=== PATIENT | male | born 1960 | race African-American/Black ===

== ENCOUNTER 2017-10-28 10:55 | Emergency (ER) | payer OTHER ==
[~2017-10-28] VITALS: Ht 165.1 cm; Wt 95.3 kg
[~2017-10-28 10:55] MED LIST: CARISOPRODOL 3350 MG PO; COUMADIN 5 MG TA5 M1; FLEXERIL PO; HYDROCODON-ACE1 EAC7 PO; HYDROCODON-ACE1 EACH PO; JANTOVEN10 MG PO; KEFLEX500 MG PO; LIORESAL 10 MG10 MG PO; NORCO 5-325 TA1 EACH PO; NORFLEX100 MG PO; ULTRACET TABLE1 EACH PO; ULTRAM 50MG TAB50 MG PO; VICODIN 5-5001 EACH PO; XARELTO10 MG PO
[2017-10-28] MEDS ORDERED: ULTRAM 50MG TAB50 MG PO (12:20)
[2017-10-28 12:25] VITALS: BP 155/83
== END 2017-10-28 12:25 | disposition home or self-care (01) ==
LOC: M.ERS 10:55
DX: M77.9 Enthesopathy, unspecified (principal)

== ENCOUNTER 2018-06-27 18:54 | Emergency (ER) | payer OTHER ==
[~2018-06-27] VITALS: Ht 167.6 cm; Wt 95.3 kg
[2018-06-27 19:27] LABS: URINE BILIRUBIN NEGATIVE (Negative); URINE BLOOD 1+ (Negative); URINE CLARITY CLEAR; URINE COLOR YELLOW; URINE GLUCOSE-RANDOM NEGATIVE (Negative); URINE LEUKOCYTES-REFLEX NEGATIVE (Negative); URINE NITRITE-REFLEX NEGATIVE (Negative); URINE PROTEIN NEGATIVE (Negative); URINE SPECIFIC GRAVITY 1.025 (1.005-1.030); URINE UROBILINOGEN 0.2 E.U./dl (0.2-1.0)
[2018-06-27 19:32] LABS: ANION GAP 8 mmol/L (7-16); BUN 8 mg/dL (7-18); CALCIUM 9.1 mg/dL (8.5-10.1); CHLORIDE 102 mmol/L (98-107); CO2 29 mmol/L (21-32); CREATININE 0.9 mg/dL (0.6-1.3); GLUCOSE 106 mg/dL (70-99); POTASSIUM 3.1 mmol/L (3.5-5.1); SODIUM 139 mmol/L (136-145)
[2018-06-27 19:33] LABS: ABSOLUTE LYMPHOCYTES 0.8 thou/uL (0.8-5.3); ABSOLUTE MONOCYTES 0.4 thou/uL (0.0-1.2); ABSOLUTE NEUTROPHILS 3.2 thou/uL (1.6-8.1); BASOPHILS 0.3 %; EOSINOPHILS 1.1 %; LYMPHOCYTES 18.2 %; MCH 29.8 pg (26.0-34.0); MCHC 32.6 g/dL (28.0-37.0); MCV 91.5 fL (80.0-100.0); MONOCYTES 8.1 %; MPV 8.4 fl. (7.2-11.1); NUCLEATED RBCS 0 /100WBC; PLATELET COUNT* 148 thou/uL (150-400); POLYS 72.3 %; RBC 4.37 mil/uL (4.50-6.00); RDW-CV 13.5 % (10.5-14.5); WBC 4.4 thou/uL (4.0-11.0)
[2018-06-27 19:36] LABS: URINE KETONES 3+ (Negative)
[2018-06-27 19:38] LABS: ACETEST (KETONE CONFIRMATORY) Moderate (Negative)
[2018-06-27 19:40] LABS: BACTERIA-REFLEX None Seen /HPF (None Seen); CRYSTALS None Seen /LPF (None Seen); SQUAMOUS 0-3 Few /LPF (0-3); URINE RBC 3-10 Few /HPF (0-2); URINE WBC-REFLEX 0-5 Rare /HPF (0-5)
[2018-06-27 19:43] LABS: ALBUMIN 3.7 g/dL (3.4-5.0); ALKALINE PHOSPHATASE 72 U/L (46-116); LIPASE 76 U/L (73-393); SGOT 34 U/L (15-37); SGPT 19 U/L (30-65); TOTAL BILIRUBIN 0.8 mg/dL (<0.1-1.0); TOTAL PROTEIN 7.6 g/dL (6.4-8.2); TROPONIN-I LEVEL <0.06 ng/mL (<0.06)
[2018-06-27] MEDS ORDERED: CARAFATE 1 GM TA1 G1 PO (20:25)
[2018-06-27] MEDS ORDERED: NORCO 5-325 TA1 EACH PO (20:25)
[2018-06-27 20:47] VITALS: BP 150/77
--- NOTE | 2018-06-28 17:03 | EKG ---
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 : 1960 Requested By: Zhou Camejo Order Number: [id number] MD: Dave Hodgson Measurements Intervals [place] Rate: 46 P: 63 MO: 147 QRS: -13 QRSD: 103 T: -35 QT: 468 QTc: 410 Interpretive Statements Sinus bradycardia Left ventricular hypertrophy, by voltage Borderline T abnormalities, inferior leads Compared to ECG 09/11/2014 14:11:06 T-wave abnormality now present Electronically Signed On 06-28-2018 17:03:45 CDT by Dave Hodgson [email or web address] <ELECTRONICALLY SIGNED> By: Dave Hodgson MD, [facility] 06/28/18 1703 16 16 Dave Hodgson MD, [facility] /EPI
== END 2018-06-27 20:48 | disposition home or self-care (01) ==
LOC: M.ERS 18:54
PROVIDERS: Emergency Medicine Emergency Medical Services
DX: R10.9 Unspecified abdominal pain (principal); Z86.718 Personal history of other venous thrombosis and embolism

== ENCOUNTER 2019-01-07 01:10 | Emergency (ER) | payer OTHER ==
[~2019-01-07] VITALS: Ht 167.6 cm; Wt 90.7 kg
[~2019-01-07 01:10] MED LIST changes: +CARAFATE 1 GM TA1 G1 PO
[2019-01-07] MEDS ORDERED: FLEXERIL PO (01:31)
[2019-01-07] MEDS ORDERED: HYDROCODONE-AP1 EAC6 PO (01:31)
[2019-01-07 02:01] VITALS: BP 128/78
--- NOTE | 2019-01-07 13:09 | EKG ---
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1960 Requested By: Zhou Camejo Order Number: [id number] MD: Stephen Covington Measurements Intervals [place] Rate: 57 P: 11 ND: 149 QRS: -20 QRSD: 101 T: -5 QT: 436 QTc: 425 Interpretive Statements Sinus rhythm Left ventricular hypertrophy Borderline T abnormalities, inferior leads Compared to ECG 06/27/2018 19:17:41 Sinus bradycardia no longer present T-wave abnormality still present Electronically Signed On 01-07-2019 13:09:18 CDT by Stephen Covington [email or web address] <ELECTRONICALLY SIGNED> By: Stephen Covington MD, [facility] 01/07/19 0937 0120 0120 Stephen Covington MD, [facility] /EPI
== END 2019-01-07 02:01 | disposition home or self-care (01) ==
LOC: M.ERS 01:10
DX: R07.81 Pleurodynia (principal); Z88.8 Allergy status to other drugs, medicaments and biological substances

== ENCOUNTER 2019-02-06 01:10 | Emergency (ER) | payer OTHER ==
[~2019-02-06] VITALS: Ht 167.6 cm; Wt 90.7 kg
[~2019-02-06 01:10] MED LIST changes: +HYDROCODONE-AP1 EAC6 PO
[2019-02-06 01:19] VITALS: BP 144/95
[2019-02-06] MEDS ORDERED: KEFLEX500 M1 PO (01:27)
[2019-02-06] MEDS ORDERED: VANOS60 GM TOP (01:27)
== END 2019-02-06 01:36 | disposition home or self-care (01) ==
LOC: M.ERS 01:10
DX: L30.4 Erythema intertrigo (principal); L03.113 Cellulitis of right upper limb; Z88.8 Allergy status to other drugs, medicaments and biological substances

== ENCOUNTER 2019-03-02 00:54 | Emergency (ER) | payer OTHER ==
[~2019-03-02] VITALS: Ht 167.6 cm; Wt 90.7 kg
[~2019-03-02 00:54] MED LIST changes: +KEFLEX500 M1 PO; +VANOS60 GM TOP
[2019-03-02] MEDS ORDERED: FLEXERIL PO (01:11)
[2019-03-02] MEDS ORDERED: NORCO 7.5-3251 EACH PO (01:11)
[2019-03-02 01:19] VITALS: BP 161/85
== END 2019-03-02 01:21 | disposition home or self-care (01) ==
LOC: M.ERS 00:54
DX: S29.012A Strain of muscle and tendon of back wall of thorax, initial encounter (principal); X58.XXXA Exposure to other specified factors, initial encounter; Y93.89 Activity, other specified; Y92.89 Other specified places as the place of occurrence of the external cause; Y99.8 Other external cause status; Z88.8 Allergy status to other drugs, medicaments and biological substances

== ENCOUNTER 2019-06-22 01:07 | Emergency (ER) | payer OTHER ==
[~2019-06-22] VITALS: Ht 165.1 cm; Wt 90.7 kg
[~2019-06-22 01:07] MED LIST changes: +NORCO 7.5-3251 EACH PO
[2019-06-22] MEDS ORDERED: PREDNISONE50 MG PO (01:54)
[2019-06-22] MEDS ORDERED: NORCO 7.5-3251 EACH PO (01:54)
[2019-06-22] MEDS ORDERED: MELOXICAM15 MG PO (01:54)
[2019-06-22 02:06] VITALS: BP 132/90
== END 2019-06-22 02:06 | disposition home or self-care (01) ==
LOC: M.ERS 01:07
DX: M17.12 Unilateral primary osteoarthritis, left knee (principal); Z88.6 Allergy status to analgesic agent; Z86.718 Personal history of other venous thrombosis and embolism

== ENCOUNTER 2019-08-20 02:05 | Emergency (ER) | payer OTHER ==
[~2019-08-20] VITALS: Ht 165.1 cm; Wt 90.7 kg
[~2019-08-20 02:05] MED LIST changes: +MELOXICAM15 MG PO; +PREDNISONE50 MG PO
[2019-08-20] MEDS ORDERED: HYDROCODON-ACE1 EAC7 PO (02:56)
[2019-08-20] MEDS ORDERED: MELOXICAM15 MG PO (02:56)
[2019-08-20 03:08] VITALS: BP 148/78
[2019-08-20] MEDS ORDERED: VANOS60 GM TOP (03:10)
== END 2019-08-20 03:10 | disposition home or self-care (01) ==
LOC: M.ERS 02:05
DX: M17.11 Unilateral primary osteoarthritis, right knee (principal); M25.462 Effusion, left knee; Z88.6 Allergy status to analgesic agent; Z86.718 Personal history of other venous thrombosis and embolism

== ENCOUNTER 2019-09-08 02:07 | Emergency (ER) | payer OTHER ==
[~2019-09-08] VITALS: Ht 165.1 cm; Wt 89.8 kg
[2019-09-08 02:12] VITALS: BP 156/75
== END 2019-09-08 02:59 | disposition home or self-care (01) ==
LOC: M.ERS 02:07
DX: S50.11XA Contusion of right forearm, initial encounter (principal); W22.8XXA Striking against or struck by other objects, initial encounter; Z86.718 Personal history of other venous thrombosis and embolism; Z88.6 Allergy status to analgesic agent; Y93.89 Activity, other specified; Y92.89 Other specified places as the place of occurrence of the external cause; Y99.8 Other external cause status

== ENCOUNTER 2021-03-10 10:07 | Emergency (ER) | payer OTHER ==
[~2021-03-10] VITALS: Ht 165.1 cm; Wt 97.5 kg
[2021-03-10 10:38] LABS: ABSOLUTE MONOCYTES 0.3 thou/uL (0.0-1.2); ABSOLUTE NEUTROPHILS 5.4 thou/uL (1.6-8.1); MCHC 33.1 g/dL (28.0-37.0); WBC 6.5 thou/uL (4.0-11.0)
[2021-03-10 10:40] LABS: ABSOLUTE LYMPHOCYTES 0.8 thou/uL (0.8-5.3); BASOPHILS 0.3 %; HEMATOCRIT 41.7 % (42.0-52.0); HEMOGLOBIN 13.8 gm/dL (14.0-18.0); LYMPHOCYTES 12.1 %; MCH 30.6 pg (26.0-34.0); MCV 92.5 fL (80.0-100.0); MONOCYTES 4.7 %; MPV 8.2 fl. (7.2-11.1); NUCLEATED RBCS 0 /100WBC; PLATELET COUNT* 130 thou/uL (150-400); POLYS 82.9 %; RDW-CV 13.4 % (10.5-14.5)
[2021-03-10 10:48] LABS: CALCIUM 8.7 mg/dL (8.5-10.1); POTASSIUM 3.8 mmol/L (3.5-5.1)
[2021-03-10 11:06] LABS: TOTAL BILIRUBIN 0.9 mg/dL (<0.1-1.0); TOTAL PROTEIN 8.5 g/dL (6.4-8.2)
[2021-03-10 11:09] LABS: URINE BLOOD 3+ (Negative); URINE CLARITY CLEAR; URINE COLOR YELLOW; URINE GLUCOSE-RANDOM NEGATIVE (Negative); URINE KETONES 1+ (Negative); URINE LEUKOCYTES-REFLEX NEGATIVE (Negative); URINE NITRITE-REFLEX NEGATIVE (Negative); URINE PROTEIN 2+ (Negative); URINE SPECIFIC GRAVITY 1.025 (1.005-1.030)
[2021-03-10 11:17] LABS: ICTOTEST (BILI CONFIRMATORY) Negative (Negative); SQUAMOUS 0-3 Few /LPF (0-3); URINE BILIRUBIN 2+ (Negative); URINE RBC 0-2 Rare /HPF (0-2); URINE WBC-REFLEX 0-5 Rare /HPF (0-5)
[2021-03-10 11:18] LABS: CRYSTALS None Seen /LPF (None Seen); FINE GRANULAR CASTS 0-3 Few /LPF (None Seen); HYALINE CASTS 0-3 Few /LPF (None Seen)
[2021-03-10] MEDS ORDERED: AUGMENTIN 875-1 EACH PO (12:39)
[2021-03-10] MEDS ORDERED: MECLIZINE HCL25 M1 PO (12:39)
[2021-03-10 12:47] VITALS: BP 112/66
--- NOTE | 2021-03-11 11:04 | EKG ---
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: : 1960 Requested By: Zhou Camejo Order Number: [id number] MD: Stephen Covington Measurements Intervals [place] Rate: 71 P: 29 [place]: 139 QRS: -15 QRSD: 97 T: 6 QT: 388 QTc: 422 Interpretive Statements Sinus rhythm Left ventricular hypertrophy Inferior infarct, old Compared to ECG 01/07/2019 01:20:27 no change Electronically Signed On 03-11-2021 11:04:25 CDT by Stephen Covington [email or web address] <ELECTRONICALLY SIGNED> By: Stephen Covington MD, [facility] 03/11/21 1104 1034 1034 Stephen Covington MD, [facility] /EPI
== END 2021-03-10 12:45 | disposition home or self-care (01) ==
LOC: M.ERS 10:07
PROVIDERS: Emergency Medicine Emergency Medical Services
DX: R42 Dizziness and giddiness (principal); R53.1 Weakness; Z88.6 Allergy status to analgesic agent

== ENCOUNTER 2021-03-27 19:03 | Emergency (ER) | payer OTHER ==
[~2021-03-27] VITALS: Ht 165.1 cm; Wt 103.9 kg
[~2021-03-27 19:03] MED LIST changes: +AUGMENTIN 875-1 EACH PO; +MECLIZINE HCL25 M1 PO
[2021-03-27 19:39] LABS: ABSOLUTE EOSINOPHILS 0.1 thou/uL (0.0-0.7); ABSOLUTE LYMPHOCYTES 0.8 thou/uL (0.8-5.3); ABSOLUTE MONOCYTES 0.5 thou/uL (0.0-1.2); ABSOLUTE NEUTROPHILS 3.3 thou/uL (1.6-8.1); BASOPHILS 0.8 %; EOSINOPHILS 2.1 %; HEMATOCRIT 33.3 % (42.0-52.0); HEMOGLOBIN 11.1 gm/dL (14.0-18.0); LYMPHOCYTES 17.6 %; MCH 31.1 pg (26.0-34.0); MCHC 33.2 g/dL (28.0-37.0); MCV 93.7 fL (80.0-100.0); MONOCYTES 10.5 %; MPV 7.4 fl. (7.2-11.1); NUCLEATED RBCS 0 /100WBC; PLATELET COUNT* 204 thou/uL (150-400); RBC 3.56 mil/uL (4.50-6.00); RDW-CV 13.5 % (10.5-14.5); WBC 4.7 thou/uL (4.0-11.0)
[2021-03-27 19:47] LABS: CALCIUM 9.2 mg/dL (8.5-10.1); CREATININE 0.8 mg/dL (0.6-1.3); POTASSIUM 4.2 mmol/L (3.5-5.1)
[2021-03-27 19:51] LABS: ALBUMIN 3.5 g/dL (3.4-5.0); TOTAL BILIRUBIN 0.5 mg/dL (<0.1-1.0); TOTAL PROTEIN 7.6 g/dL (6.4-8.2)
[2021-03-27 19:56] LABS: APTT 25.6 Seconds (25.0-31.3); PROTIME 10.6 Seconds (9.20-11.50)
[2021-03-27] MEDS ORDERED: ELIQUIS5 M1 PO (21:25)
[2021-03-27 21:38] VITALS: BP 184/85
== END 2021-03-27 21:38 | disposition home or self-care (01) ==
LOC: M.ERS 19:03
PROVIDERS: Personal Emergency Response Attendant
DX: I82.402 Acute embolism and thrombosis of unspecified deep veins of left lower extremity (principal); Z88.6 Allergy status to analgesic agent

== ENCOUNTER 2021-06-02 16:21 | Emergency (ER) | payer OTHER ==
[~2021-06-02] VITALS: Ht 165.1 cm; Wt 99.8 kg
[~2021-06-02 16:21] MED LIST changes: +ELIQUIS5 M1 PO
[2021-06-02 16:33] VITALS: BP 134/101
[2021-06-02] MEDS ORDERED: BACTRIM DS TAB1 EAC1 PO (17:07)
[2021-06-02] MEDS ORDERED: CENTANY30 GM TOP (17:07)
== END 2021-06-02 17:27 | disposition home or self-care (01) ==
LOC: M.ERS 16:21
DX: T81.89XD Other complications of procedures, not elsewhere classified, subsequent encounter (principal); Z88.1 Allergy status to other antibiotic agents; W19.XXXD Unspecified fall, subsequent encounter

== ENCOUNTER → 2021-09-17 | Outpatient (CLI) | payer OTHER ==
[~2021-09-17] MED LIST changes: +BACTRIM DS TAB1 EAC1 PO; +CENTANY30 GM TOP
== END ==
LOC: M.WC 08:00
PROVIDERS: ATTEND Surgery
DX: I87.312 Chronic venous hypertension (idiopathic) with ulcer of left lower extremity (principal); L97.822 Non-pressure chronic ulcer of other part of left lower leg with fat layer exposed; T79.8XXA Other early complications of trauma, initial encounter; I87.2 Venous insufficiency (chronic) (peripheral); Z96.651 Presence of right artificial knee joint; Z86.718 Personal history of other venous thrombosis and embolism; W22.8XXA Striking against or struck by other objects, initial encounter; Y93.89 Activity, other specified; Y92.89 Other specified places as the place of occurrence of the external cause; Y99.8 Other external cause status

== ENCOUNTER → 2021-09-20 | Outpatient (CLI) | payer OTHER | LOC: M.ULTRA 07:41 → M.WC 07:41 → M.ULTRA 08:00 | PROVIDERS: ATTEND Nurse Practitioner Family | DX: L97.822 Non-pressure chronic ulcer of other part of left lower leg with fat layer exposed (principal); I87.8 Other specified disorders of veins; Z86.718 Personal history of other venous thrombosis and embolism ==

== ENCOUNTER → 2021-09-24 | Outpatient (CLI) | payer OTHER | LOC: M.WC 08:16 | PROVIDERS: ATTEND Surgery | DX: I87.312 Chronic venous hypertension (idiopathic) with ulcer of left lower extremity (principal); L97.822 Non-pressure chronic ulcer of other part of left lower leg with fat layer exposed; T79.8XXD Other early complications of trauma, subsequent encounter; Z96.651 Presence of right artificial knee joint; Z86.718 Personal history of other venous thrombosis and embolism; W22.8XXD Striking against or struck by other objects, subsequent encounter ==

== ENCOUNTER → 2021-09-27 | Outpatient (CLI) | payer OTHER | LOC: M.WC 10:38 | PROVIDERS: ATTEND Surgery | DX: L97.822 Non-pressure chronic ulcer of other part of left lower leg with fat layer exposed (principal); S81.802D Unspecified open wound, left lower leg, subsequent encounter; I87.2 Venous insufficiency (chronic) (peripheral); Z86.718 Personal history of other venous thrombosis and embolism; Z96.651 Presence of right artificial knee joint; Z98.890 Other specified postprocedural states; W22.8XXD Striking against or struck by other objects, subsequent encounter ==

== ENCOUNTER → 2021-10-01 | Outpatient (CLI) | payer OTHER | LOC: M.WC 09-28 13:58 | PROVIDERS: ATTEND Surgery | DX: I87.312 Chronic venous hypertension (idiopathic) with ulcer of left lower extremity (principal); L97.822 Non-pressure chronic ulcer of other part of left lower leg with fat layer exposed; T79.8XXD Other early complications of trauma, subsequent encounter; Z86.718 Personal history of other venous thrombosis and embolism; Z79.01 Long term (current) use of anticoagulants; Z79.899 Other long term (current) drug therapy; X58.XXXD Exposure to other specified factors, subsequent encounter ==

== ENCOUNTER → 2021-10-04 | Outpatient (CLI) | payer OTHER | LOC: M.WC 10:20 | PROVIDERS: ATTEND Surgery | DX: I87.312 Chronic venous hypertension (idiopathic) with ulcer of left lower extremity (principal); L97.822 Non-pressure chronic ulcer of other part of left lower leg with fat layer exposed; T79.8XXD Other early complications of trauma, subsequent encounter; Z86.718 Personal history of other venous thrombosis and embolism; X58.XXXD Exposure to other specified factors, subsequent encounter ==

== ENCOUNTER → 2021-10-08 | Outpatient (CLI) | payer OTHER | LOC: M.WC 09:18 | PROVIDERS: ATTEND Surgery | DX: I87.312 Chronic venous hypertension (idiopathic) with ulcer of left lower extremity (principal); L97.822 Non-pressure chronic ulcer of other part of left lower leg with fat layer exposed; T79.8XXD Other early complications of trauma, subsequent encounter; Z86.718 Personal history of other venous thrombosis and embolism; Z79.01 Long term (current) use of anticoagulants; Z79.899 Other long term (current) drug therapy; Z96.651 Presence of right artificial knee joint; W22.8XXD Striking against or struck by other objects, subsequent encounter ==

== ENCOUNTER → 2021-10-11 | Outpatient (CLI) | payer OTHER | LOC: M.WC 09:04 | PROVIDERS: ATTEND Surgery | DX: I87.312 Chronic venous hypertension (idiopathic) with ulcer of left lower extremity (principal); L97.822 Non-pressure chronic ulcer of other part of left lower leg with fat layer exposed; T79.8XXD Other early complications of trauma, subsequent encounter; Z86.718 Personal history of other venous thrombosis and embolism; Z79.01 Long term (current) use of anticoagulants; Z79.899 Other long term (current) drug therapy; Z96.651 Presence of right artificial knee joint; W22.8XXD Striking against or struck by other objects, subsequent encounter ==

== ENCOUNTER → 2021-10-15 | Outpatient (CLI) | payer OTHER | LOC: M.WC 10:00 | PROVIDERS: ATTEND Surgery | DX: I87.312 Chronic venous hypertension (idiopathic) with ulcer of left lower extremity (principal); L97.822 Non-pressure chronic ulcer of other part of left lower leg with fat layer exposed; T79.8XXD Other early complications of trauma, subsequent encounter; Z86.718 Personal history of other venous thrombosis and embolism; Z79.01 Long term (current) use of anticoagulants; Z79.899 Other long term (current) drug therapy; Z96.651 Presence of right artificial knee joint; W22.8XXD Striking against or struck by other objects, subsequent encounter ==

== ENCOUNTER → 2021-10-18 | Outpatient (CLI) | payer OTHER | LOC: M.WC 09:51 | PROVIDERS: ATTEND Surgery | DX: I87.312 Chronic venous hypertension (idiopathic) with ulcer of left lower extremity (principal); L97.822 Non-pressure chronic ulcer of other part of left lower leg with fat layer exposed; T79.8XXD Other early complications of trauma, subsequent encounter; Z86.718 Personal history of other venous thrombosis and embolism; Z79.01 Long term (current) use of anticoagulants; Z96.651 Presence of right artificial knee joint; W22.8XXD Striking against or struck by other objects, subsequent encounter ==

== ENCOUNTER → 2021-10-22 | Outpatient (CLI) | payer OTHER | LOC: M.WC 09:56 | PROVIDERS: ATTEND Surgery | DX: I87.312 Chronic venous hypertension (idiopathic) with ulcer of left lower extremity (principal); L97.822 Non-pressure chronic ulcer of other part of left lower leg with fat layer exposed; T79.8XXD Other early complications of trauma, subsequent encounter; Z86.718 Personal history of other venous thrombosis and embolism; Z79.01 Long term (current) use of anticoagulants; Z79.899 Other long term (current) drug therapy; Y83.8 Other surgical procedures as the cause of abnormal reaction of the patient, or of later complication, without mention of misadventure at the time of the procedure ==

== ENCOUNTER → 2021-10-25 | Outpatient (CLI) | payer OTHER | LOC: M.WC 10:00 | PROVIDERS: ATTEND Surgery | DX: I87.312 Chronic venous hypertension (idiopathic) with ulcer of left lower extremity (principal); L97.822 Non-pressure chronic ulcer of other part of left lower leg with fat layer exposed; T79.8XXD Other early complications of trauma, subsequent encounter; Z86.718 Personal history of other venous thrombosis and embolism; Z79.01 Long term (current) use of anticoagulants; X58.XXXD Exposure to other specified factors, subsequent encounter; Y83.8 Other surgical procedures as the cause of abnormal reaction of the patient, or of later complication, without mention of misadventure at the time of the procedure ==

== ENCOUNTER → 2021-10-29 | Outpatient (CLI) | payer OTHER | LOC: M.WC 09:18 | PROVIDERS: ATTEND Surgery | DX: I87.312 Chronic venous hypertension (idiopathic) with ulcer of left lower extremity (principal); L97.822 Non-pressure chronic ulcer of other part of left lower leg with fat layer exposed; T79.8XXD Other early complications of trauma, subsequent encounter; Z86.718 Personal history of other venous thrombosis and embolism; Z79.01 Long term (current) use of anticoagulants; Y83.8 Other surgical procedures as the cause of abnormal reaction of the patient, or of later complication, without mention of misadventure at the time of the procedure ==

== ENCOUNTER → 2021-11-01 | Outpatient (CLI) | payer OTHER | LOC: M.WC 09:00 | PROVIDERS: ATTEND Surgery | DX: I87.312 Chronic venous hypertension (idiopathic) with ulcer of left lower extremity (principal); L97.822 Non-pressure chronic ulcer of other part of left lower leg with fat layer exposed; T79.8XXD Other early complications of trauma, subsequent encounter; Z86.718 Personal history of other venous thrombosis and embolism; Z79.01 Long term (current) use of anticoagulants; X58.XXXD Exposure to other specified factors, subsequent encounter ==

== ENCOUNTER → 2021-11-05 | Outpatient (CLI) | payer OTHER | LOC: M.WC 09:14 | PROVIDERS: ATTEND Surgery | DX: I87.312 Chronic venous hypertension (idiopathic) with ulcer of left lower extremity (principal); L97.822 Non-pressure chronic ulcer of other part of left lower leg with fat layer exposed; T79.8XXD Other early complications of trauma, subsequent encounter; Z86.718 Personal history of other venous thrombosis and embolism; Z79.01 Long term (current) use of anticoagulants; X58.XXXD Exposure to other specified factors, subsequent encounter ==

== ENCOUNTER → 2021-11-12 | Outpatient (CLI) | payer OTHER | LOC: M.WC 08:47 | PROVIDERS: ATTEND Surgery | DX: I87.312 Chronic venous hypertension (idiopathic) with ulcer of left lower extremity (principal); L97.822 Non-pressure chronic ulcer of other part of left lower leg with fat layer exposed; T79.8XXD Other early complications of trauma, subsequent encounter; Z86.718 Personal history of other venous thrombosis and embolism; Z79.01 Long term (current) use of anticoagulants; X58.XXXD Exposure to other specified factors, subsequent encounter ==

== ENCOUNTER → 2021-11-19 | Outpatient (CLI) | payer OTHER | LOC: M.WC 08:42 | PROVIDERS: ATTEND Surgery | DX: I87.312 Chronic venous hypertension (idiopathic) with ulcer of left lower extremity (principal); L97.822 Non-pressure chronic ulcer of other part of left lower leg with fat layer exposed; T79.8XXD Other early complications of trauma, subsequent encounter; Z86.718 Personal history of other venous thrombosis and embolism; Z79.01 Long term (current) use of anticoagulants; X58.XXXD Exposure to other specified factors, subsequent encounter ==

== ENCOUNTER → 2021-11-26 | Outpatient (CLI) | payer OTHER | LOC: M.WC 08:14 | PROVIDERS: ATTEND Internal Medicine | DX: I87.312 Chronic venous hypertension (idiopathic) with ulcer of left lower extremity (principal); L97.822 Non-pressure chronic ulcer of other part of left lower leg with fat layer exposed; T79.8XXD Other early complications of trauma, subsequent encounter; Z86.718 Personal history of other venous thrombosis and embolism; Z79.01 Long term (current) use of anticoagulants; W22.8XXD Striking against or struck by other objects, subsequent encounter ==

== ENCOUNTER → 2021-12-03 | Outpatient (CLI) | payer OTHER | LOC: M.WC 08:57 | PROVIDERS: ATTEND Surgery | DX: I87.312 Chronic venous hypertension (idiopathic) with ulcer of left lower extremity (principal); L97.822 Non-pressure chronic ulcer of other part of left lower leg with fat layer exposed; T79.8XXD Other early complications of trauma, subsequent encounter; Z86.718 Personal history of other venous thrombosis and embolism; Z79.899 Other long term (current) drug therapy; X58.XXXD Exposure to other specified factors, subsequent encounter ==

== ENCOUNTER → 2021-12-10 | Outpatient (CLI) | payer OTHER | LOC: M.WC 09:13 | PROVIDERS: ATTEND Surgery | DX: I87.312 Chronic venous hypertension (idiopathic) with ulcer of left lower extremity (principal); L97.822 Non-pressure chronic ulcer of other part of left lower leg with fat layer exposed; T79.8XXD Other early complications of trauma, subsequent encounter; Z86.718 Personal history of other venous thrombosis and embolism; Z79.899 Other long term (current) drug therapy; X58.XXXD Exposure to other specified factors, subsequent encounter ==